=== PATIENT | female | born 1995 | race Asian ===

== ENCOUNTER 2019-04-22 19:22 | Emergency (ER) | payer OTHER, SELFPAY ==
[2019-04-22] VITALS (9 sets, daily range): BP systolic 106–126; BP diastolic 51–78; PULSE 88–149; RESP 16–22; TEMP 37.5–39.4; O2SAT 97–100
[2019-04-22] MEDS: SODIUM CHLORIDE 0.9% 1,000 ML 1000 ML IV (20:00)
--- NOTE | 2019-04-22 20:07 | ED.FEVER ---
HPI - Fever General Chief Complaint: Fever Stated Complaint: COUGH,THREW UP FEVER Time Seen by Provider: 04/22/19 20:06 Source: patient and other (boyfriend) Mode of arrival: Ambulatory Limitations: no limitations History of Present Illness HPI Narrative: This is a 23-year-old female comes to the emergency department with complaint of fever, chills, body aches. Patient states that she will started yesterday. She has had a headache but does not describe it as severe no photophobia. She states this morning she took some ibuprofen she had a temperature of 104? F at she denies any nasal congestion she has had a with been sort of mucousy. She has felt congested in her chest she denies any sore throat. Um she states she vomited twice but describes both episodes as what sound like post-tussive emesis. She denies any abdominal pain. She describes muscle aches from head to toe. She denies any urinary frequency dysuria urgency. States she is on her menses. She denies any rash or skin changes. 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 She denies any past medical issues, denies any surgeries. She states she is allergic to penicillin and develops hives. Denies tobacco, occasional alcohol, no illicit. 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 Related Data Previous Rx's Medication Instructions Recorded azithromycin 250 mg PO DAILY 4 Days #4 tab 04/22/19 Allergies Allergy/AdvReac Type Severity Reaction Status Date / Time Penicillins Allergy Verified 04/22/19 21:26 Review of Systems Review of Systems ROS Unobtainable: All systems reviewed & are unremarkable except as noted in HPI and below Constitutional Constitutional: Reports body ache(s), Reports chills, Denies excessive sweating, Denies fatigue, Reports fever(s), Reports headache(s), Denies lethargy and Denies weakness Eyes Eyes: Denies change in vision and Denies photophobia ENT Ears, Nose, Mouth, and Throat: Reports as per HPI, Denies vertigo, Denies dizziness, Reports headache(s), Denies nasal congestion, Denies post nasal drip, Denies sinus pressure and Denies sore throat Cardiovascular Cardiovascular: Denies chest pain, Denies edema, Denies irregular heart rhythm, Denies lightheadedness, Denies palpitations, Denies dyspnea, Denies dyspnea on exertion and Denies orthopnea Respiratory Respiratory: Denies change in phlegm color, Reports chest congestion, Reports cough, Denies hemoptysis, Reports excessive phlegm production, Denies pain on inspiration, Denies pain with cough, Denies dyspnea, Denies dyspnea on exertion and Denies wheezing Gastrointestinal Gastrointestinal: Denies abdominal pain, Denies melena, Denies hematochezia, Denies change in bowel habits, Denies diarrhea, Denies nausea and Denies vomiting Genitourinary Genitourinary: Denies abnormal menses (on normal menses.), Denies abnormal vaginal bleeding, Denies hematuria, Denies dysuria, Denies pelvic pain, Denies flank pain, Denies urinary incontinence, Denies urinary urgency and Denies vaginal discharge Musculoskeletal Musculoskeletal: Reports as per HPI, Denies back pain and Reports myalgias Integumentary/Breasts Skin/Breast: Denies erythema, Denies rash and Denies unusual bruising Neurologic Neurologic: Denies vertigo, Denies dizziness, Reports headache(s) and Denies weakness Endocrine Endocrine: Denies excessive sweating, Denies fatigue and Denies palpitations Allergic/Immunologic Allergic/Immunologic: Denies wheezing Patient History Social History Smoking Status: Never smoker alcohol intake frequency: a few times a month Substance Use Type: does not use Exam Narrative Exam Narrative: GEN: well nourished, well appearing female, alert and oriented x 3, patient appears to be in mild distress. Patient is warm to the touch. HEENT: Atraumatic, pupils are equal round reactive to light, extraocular movements are intact, no photophobia, nares are clear, TMs are clear with no fluid, there is no conjunctival pallor. Throat is clear without any exudates, erythema, tonsillar enlargement or uvular deviation, negative Kernig's and Brudzinski's. No meningeal signs. HEART: Regular rate and rhythm without murmur, clicks, rubs. Pulses are equal in upper and lower extremities LUNGS:Lungs clear to auscultation, no wheezes, rales, crackles, chest moves symmetrically, no tachypnea or accessory muscle use. ABD:bowel sounds normal, soft, mild generalized abdominal tenderness greatest in RLQ, no guarding, rebound, rigidity, no masses noted, no hepatosplenomegaly :No CVA tenderness MSCL: Non-tender, no muscle atrophy, muscles strength 5/5 upper and lower extremities, full range of motion, normal gait NEURO:CN 2-12 intact, sensation normal SKIN: No rash, no petechiae, no erythema. Initial Vital Signs Initial Vital Signs: Vital Signs Temperature 102.8 F H 04/22/19 19:26 Pulse Rate 149 H 04/22/19 19:26 Respiratory Rate 22 04/22/19 19:26 Blood Pressure 126/64 04/22/19 19:26 Pulse Oximetry 100 04/22/19 19:26 Course Orders Ordered: ED Orders 04/22/19 19:05 Lactate (Lactic Acid) Stat Procalcitonin Stat 04/22/19 19:38 EKG-12 Lead Stat 04/22/19 19:50 Complete Blood Count AUTO DIFF Stat Comprehensive Metabolic Panel Stat 04/22/19 20:02 Influenza A and B by PCR Rapid Stat 04/22/19 20:17 XR chest 1V Stat 04/22/19 20:35 Blood Culture Stat Discontinued Medications Acetaminophen (Tylenol) 975 mg PO NOW ONE Stop: 04/22/19 21:33 Last Admin: 04/22/19 21:57 Dose: 975 mg Documented by: KYLERFARL Azithromycin (Zithromax) 500 mg PO NOW ONE Stop: 04/22/19 21:05 Last Admin: 04/22/19 21:23 Dose: 500 mg Documented by: AMY Sodium Chloride (Normal Saline 0.9%) 1,000 mls @ 1,000 mls/hr IV BOLUS ONE Stop: 04/22/19 20:37 Last Infusion: 04/22/19 21:16 Dose: 0 mls/hr Documented by: Admin: 04/22/19 20:00 Dose: 1,000 mls/hr Documented by: MMCFARL Sodium Chloride (Normal Saline 0.9%) 1,605.72 mls @ 535.24 mls/hr 30 ml/kg infuse over 3 hr (1605.72 ml) IV NOW ONE Stop: 04/22/19 23:19 Last Infusion: 04/22/19 23:59 Dose: 0 mls/hr Documented by: Admin: 04/22/19 21:23 Dose: 535.24 mls/hr Documented by: AMY Ceftriaxone Sodium/Dextrose (Rocephin) 1 gm in 50 mls @ 100 mls/hr IV NOW ONE Stop: 04/22/19 21:32 Last Infusion: 04/22/19 22:19 Dose: 0 mls/hr Documented by: Admin: 04/22/19 21:23 Dose: 100 mls/hr Documented by: AMY Ketorolac Tromethamine (Toradol) 30 mg IV NOW ONE Stop: 04/22/19 20:21 Last Admin: 04/22/19 20:28 Dose: 30 mg Documented by: SILVIA Vital Signs Vital signs: Vital Signs - 8 hr 04/22/19 19:26 04/22/19 20:16 04/22/19 20:28 Temperature 102.8 F H 102.8 F H Pulse Rate 149 H 128 H Respiratory Rate 22 18 Blood Pressure 126/64 Blood Pressure [Left Arm] 109/51 L Pulse Oximetry 100 99 04/22/19 21:00 04/22/19 21:30 04/22/19 21:57 Temperature 102.9 F H 102.8 F H Pulse Rate 121 H 117 H Respiratory Rate 21 18 Blood Pressure Blood Pressure [Left Arm] 125/55 L 117/78 Pulse Oximetry 100 97 04/22/19 22:24 04/22/19 23:07 04/22/19 23:59 Temperature 99.5 F Pulse Rate 88 97 H Respiratory Rate 20 16 Blood Pressure 106/61 Blood Pressure [Left Arm] 106/61 Pulse Oximetry 97 99 MDM - Fever Lab Data Attestation: I reviewed the patient's lab results. Result diagrams: 04/22/19 19:50 04/22/19 19:50 Labs: Lab Results 04/22/19 04/22/19 04/22/19 Range/Units 19:05 19:05 19:50 WBC 16.1 H (4.5-11.0) X10^3/uL RBC 5.43 H (4.0-5.2) X10^6/uL Hgb 14.2 (12.0-16.0) g/dL Hct 42.2 (36-46) % MCV 77.7 L (80-100) fL MCH 26.2 (26-34) PG MCHC 33.7 (30-36) % RDW 12.9 (11.6-14.8) % Plt Count 256 (150-400) X10^3/uL Neut % (Auto) 87.3 H (50-75) % Lymph % (Auto) 7.3 L (25-40) % [place] % (Auto) 5.1 (3-14) % Eos % (Auto) 0.0 L (2-4) % Baso % (Auto) 0.3 (0-2) % Neut # (Auto) 38012 H (1311-6087) /uL Lymph # (Auto) 1200 (7109-9959) /uL [place] # (Auto) 800 (0-900) /uL Eos # (Auto) 0 (0-450) /uL Baso # (Auto) 0 (0-100) /uL Sodium (137-145) mmol/L Potassium (3.4-5.1) mmol/L Chloride (98-107) mmol/L Carbon Dioxide (22-32) mmol/L BUN (7-17) mg/dL Creatinine (0.52-1.04) mg/dL Estimated GFR (>60) mL/min BUN/Creatinine Ratio (6-22) Glucose (70-100) mg/dL Lactate 1.3 (0.7-2.1) mmol/L Calcium (8.4-10.2) mg/dL Total Bilirubin (0.2-1.3) mg/dL AST (14-36) IU/L ALT (<35) IU/L Alkaline Phosphatase (38-126) U/L Total Protein (6.3-8.2) g/dL Albumin (3.5-5.0) g/dL Globulin (1.7-4.1) g/dL Albumin/Globulin Ratio (1.0-2.8) Procalcitonin 0.29 (<0.5) ng/mL Influenza A & B (PCR) (Negative) 04/22/19 04/22/19 Range/Units 19:50 20:02 WBC (4.5-11.0) X10^3/uL RBC (4.0-5.2) X10^6/uL Hgb (12.0-16.0) g/dL Hct (36-46) % MCV (80-100) fL MCH (26-34) PG MCHC (30-36) % RDW (11.6-14.8) % Plt Count (150-400) X10^3/uL Neut % (Auto) (50-75) % Lymph % (Auto) (25-40) % [place] % (Auto) (3-14) % Eos % (Auto) (2-4) % Baso % (Auto) (0-2) % Neut # (Auto) (6806-8242) /uL Lymph # (Auto) (9562-3232) /uL [place] # (Auto) (0-900) /uL Eos # (Auto) (0-450) /uL Baso # (Auto) (0-100) /uL Sodium 136 L (137-145) mmol/L Potassium 3.6 (3.4-5.1) mmol/L Chloride 99 (98-107) mmol/L Carbon Dioxide 23 (22-32) mmol/L BUN 25 H (7-17) mg/dL Creatinine 1.10 H (0.52-1.04) mg/dL Estimated GFR > 60.0 (>60) mL/min BUN/Creatinine Ratio 22.7 H (6-22) Glucose 124 H (70-100) mg/dL Lactate (0.7-2.1) mmol/L Calcium 9.8 (8.4-10.2) mg/dL Total Bilirubin 0.6 (0.2-1.3) mg/dL AST 26 (14-36) IU/L ALT 19 (<35) IU/L Alkaline Phosphatase 78 (38-126) U/L Total Protein 8.8 H (6.3-8.2) g/dL Albumin 5.0 (3.5-5.0) g/dL Globulin 3.8 (1.7-4.1) g/dL Albumin/Globulin Ratio 1.3 (1.0-2.8) Procalcitonin (<0.5) ng/mL Influenza A & B (PCR) Negative (Negative) Point of Care Testing Test Results Negative Rapid Strep A Negative Urine Dip Bedside Urine Glucose Negative Bedside Urine Bilirubin - Negative Bedside Urine Ketone - Negative Urine Specific [place] 1.015 Bedside Urine Occult Blood + Bedside Urine pH 6.0 Bedside Urine Protein - Negative Bedside Urine Urobilinogen - Negative Bedside Urine Nitrite - Negative Bedside Urine Leukocytes - Negative Esterase Imaging Data Chest x-ray: Radiologist's impression: [address] [address] XRay Report Signed Patient: Letty Andrade GMR#: [id number] : 1995Acct:[id number] Age/Sex: 23 / FDate of Service: 04/22/19 Loc: ED Accession Number: [id number] Procedure: XR chest 1V Ordering Provider: Laney Sampson D.O. PROCEDURE: XR CHEST 1V INDICATIONS: fever, cough, chest congestion TECHNIQUE: One view of the chest was acquired. COMPARISON: None. FINDINGS: Surgical changes and devices: None. Lungs and pleura: Increased bronchovascular markings in bilateral hilar region are seen. Subtle opacity in right infrahilar region is noted, concerning for developing infiltrate. Left lung is clear. No pleural effusions or pneumothorax. Mediastinum: Mediastinal contours appear normal. Heart size is normal. Bones and chest wall: No suspicious bony lesions. Overlying soft tissues appear unremarkable. IMPRESSION: Finding is concerning for developing right lower lobe infiltrate. Dictated by: Lj Mccullough M.D. on 04/22/2019 at 20:54 Approved by: Lj Mccullough M.D. on 04/22/2019 at 20:55 ECG Data Attestation: I personally reviewed and interpreted this ECG as follows: Prior ECG tracings: not available for review Interpretation: Sinus tachycardia rate of 128, P are 136 QRS of 98 QTC of 410. No ST elevation or depression noted. [facility] Narrative Medical decision making narrative: In with complaint of fevers, myalgias, cough for the last 24 hours. Patient states she has a headache but describes as fairly mild. Patient's imaging shows possible early infiltrate in the right lower lobe, labs are consistent with infection with a white count of 16, leftward shift, patient's sodium is 136, BUN 25 with a creatinine of 1.1. Patient's glucose 124 otherwise LFTs and electrolytes are normal. Patient's lactate is 1.3 with a procalcitonin of 0.29 which is consistent with a possible bacterial infection for lower respiratory tract with procalcitonin, blood cultures were obtained, urinalysis did not show any signs of infection influenza was negative. Patient did not have any meningeal signs or photophobia my suspicion for meningitis is low. Patient received 2 L of fluid and her tachycardia improved significantly, she also received Toradol and Tylenol which ultimately improved her temperature as well. Patient was feeling much better she received a dose of IV Rocephin as well as azithromycin 500 mg as started on azithromycin p.o. strict return precautions were given. Discharge Plan Departure Patient Disposition: Home Clinical Impression: Pneumonia Discharge Date/Time: 04/22/19 23:07 Instructions: DI for Pneumonia -- Adult Activity Restrictions/Additional Instructions: Follow-up with primary care in the next 2-3 days for recheck. Call for an appointment. Take antibiotics until they are completely gone. Continue with ibuprofen up to 800 mg every 8 hours as needed for fevers and/or myalgias, you may also take Tylenol up to a 1000 mg every 8 hours as needed for fevers and/or myalgias Make sure you are drinking plenty of fluids. Return to the emergency department for re-evaluation if her fevers do not respond ibuprofen and Tylenol, if you are having new shortness of breath, passing out, persistent vomiting, new abdominal pain, chest pain, coughing up blood, black or bloody stools sudden severe headaches or other new or concerning symptoms. Prescriptions: New azithromycin 250 mg tablet 250 mg PO DAILY 4 Days Qty: 4 RF: 0
[2019-04-22 20:10] LABS: Add Manual Diff / Slide Review NO; Basophils Absolute Auto 0 /uL (0-100); Basophils Percent Auto 0.3 % (0-2); Eosinophils Absolute Auto 0 /uL (0-450); Hematocrit 42.2 % (36-46); Hemoglobin 14.2 g/dL (12.0-16.0); Lymphocytes Absolute Auto 1200 /uL (1100-4500); Lymphocytes Percent Auto 7.3 % (25-40); Mean Corpuscular HGB Conc 33.7 % (30-36); Mean Corpuscular Hemoglobin 26.2 PG (26-34); Mean Corpuscular Volume 77.7 fL (80-100); Monocytes Absolute Auto 800 /uL (0-900); Monocytes Percent Auto 5.1 % (3-14); Neutrophils Absolute Auto 14000 /uL (1500-7000); Neutrophils Percent Auto 87.3 % (50-75); Platelet Count 256 X10^3/uL (150-400); Red Blood Cell Count 5.43 X10^6/uL (4.0-5.2); Red Cell Distribution Width 12.9 % (11.6-14.8); White Blood Cell Count 16.1 X10^3/uL (4.5-11.0)
--- NOTE | 2019-04-22 20:17 | DI.RAD.S_ITS ---
PROCEDURE: XR CHEST 1V INDICATIONS: fever, cough, chest congestion TECHNIQUE: One view of the chest was acquired. COMPARISON: None. FINDINGS: Surgical changes and devices: None. Lungs and pleura: Increased bronchovascular markings in bilateral hilar region are seen. Subtle opacity in right infrahilar region is noted, concerning for developing infiltrate. Left lung is clear. No pleural effusions or pneumothorax. Mediastinum: Mediastinal contours appear normal. Heart size is normal. Bones and chest wall: No suspicious bony lesions. Overlying soft tissues appear unremarkable. IMPRESSION: Finding is concerning for developing right lower lobe infiltrate. Dictated by: Lj Mccullough M.D. on 04/22/2019 at 20:54 Approved by: Lj Mccullough M.D. on 04/22/2019 at 20:55
[2019-04-22 20:23] LABS: Influenza A and B by PCR Rapid Negative (Negative)
[2019-04-22 20:28] LABS: Alanine Aminotransferase 19 IU/L (<35); Albumin Globulin Ratio 1.3 (1.0-2.8); Alkaline Phosphatase 78 U/L (38-126); Aspartate Aminotransferase 26 IU/L (14-36); BUN Creatinine Ratio 22.7 (6-22); Bilirubin Total 0.6 mg/dL (0.2-1.3); Blood Urea Nitrogen 25 mg/dL (7-17); Calcium 9.8 mg/dL (8.4-10.2); Carbon Dioxide 23 mmol/L (22-32); Chloride 99 mmol/L (98-107); Estimated Glomerular Filt Rate > 60.0 mL/min (>60); Globulin 3.8 g/dL (1.7-4.1); Glucose 124 mg/dL (70-100); HEMOLYSIS < 15 (0-50); Potassium 3.6 mmol/L (3.4-5.1); Sodium 136 mmol/L (137-145); Total Protein 8.8 g/dL (6.3-8.2)
[2019-04-22] MEDS: KETOROLAC 60 MG/2 ML VIAL 30 MG IV (20:28)
[2019-04-22 20:46] LABS: Lactate (Lactic Acid) 1.3 mmol/L (0.7-2.1)
[2019-04-22 21:04] LABS: Procalcitonin 0.29 ng/mL (<0.5)
[2019-04-22] MEDS: AZITHROMYCIN 250 MG TABLET 500 MG PO (21:23)
[2019-04-22] MEDS: CEFTRIAXONE 1 GM/50 ML FROZ.PIGGY IV (21:23)
[2019-04-22] MEDS: SODIUM CHLORIDE 0.9% 535.24 ML IV (21:23)
[2019-04-22] MEDS: ACETAMINOPHEN 325 MG TABLET 975 MG PO (21:57)
== END 2019-04-22 23:07 | disposition home or self-care (01) ==
PROVIDERS: Emergency Provider Emergency Medicine
DX: J18.9 Pneumonia, unspecified organism (principal); R00.0 Tachycardia, unspecified
CPT/HCPCS: 36415; 71045; 80053; 81003; 81025; 83605; 84145; 85025; 87040; 87502; 87880; 93005; 96361; 96365; 96375; 99285; J1885

== ENCOUNTER 2021-09-20 10:34 | Day surgery (SDC) | payer OTHER, SELFPAY ==
[2021-09-20] VITALS (11 sets, daily range): BP systolic 116–134; BP diastolic 70–87; PULSE 67–97; RESP 12–22; TEMP 36.1–37.3; O2SAT 96–100; BMI 22.3
--- NOTE | 2021-09-20 | PATH_ITS ---
[facility] Accession Number: [id number] . 01 Material submitted: . PART A: product of conception - PRODUCTS OF CONCEPTION PART B: cervix - CERVICAL BIOPSY . 01 Diagnosis: A. Specimen Designated Products of Conception: Few small superficial fragments of proliferative-type endometrium. Strips of benign endocervical tissue. No chorionic villi or other products of conception identified. . B. Cervix, Biopsy: Tangentially oriented detached fragments of ectocervical epithelium with dysplasia, consistent with high-grade squamous intraepithelial lesion (JONAS-2/moderate dysplasia) and with HPV cytopathic changes. No malignancy. MRV 09/24/2021 1306 Local . 01 Electronically signed: . Neli Mishra MD, Pathologist NPI- [id number] . 01 Gross description: . A. The specimen is received in formalin, labeled products of conception, and consists of an aggregate of way to hemorrhagic tissue fragments measuring 2.5 x 0.7 x 0.3 cm in aggregate. The specimen is filtered and entirely submitted in one cassette. B. The specimen is received in formalin, labeled cervical biopsy, and consists of an aggregate of way tissue fragments measuring 0.3 x 0.3 x 0.1 cm in aggregate. The specimen is filtered and entirely submitted in one cassette. ([id number]) /[facility] 09/21/2021 1840 Local . 01 Microscopic: . A p16 immunostains shows areas of strong and diffuse positivity with an increased proliferation index on Ki-67. The overall findings support the presence of high-grade squamous intraepithelial lesion. Controls stain appropriately. . * This test was developed and its performance characteristics determined by [employer]. It has not been cleared or approved by the U.S. Food and Drug Administration. The FDA has determined that such clearance or approval is not necessary. This test is used for clinical purposes. It should not be regarded as investigational or for research. . 01 Pathologist provided ICD-10: N87.1, O03.4 . 01 CPT . 038325, 737318, L56943, [id number] Specimen Comment: A courtesy copy of this report has been sent to [phone] Performed at: 01 [facility] [address] [place] [address], [place], [place] [id number] MD Alexis Choudhury MD Phone: [phone]
--- NOTE | 2021-09-20 11:10 | ED_ITS ---
HPI - Female Genitourinary General Chief complaint: Vaginal Bleeding Stated complaint: States infection post - sent by base Dr Time Seen by Provider: 09/20/21 10:55 Source: patient Mode of arrival: Ambulatory History of Present Illness HPI Narrative: 25-year-old female nonsmoker is a sent by the [employer]. She had an elective by Cytotec on September 09 at 8 weeks. She presented to her primary care today to discuss whether not she could get on control and had mentioned some pelvic cramping and minimal spotting, as a result she had a bedside ultrasound with suspects retained products. The patient denies any dizziness, weakness or lightheadedness. She has had no fever or chills. She has no chest pain or shortness of breath. She has been NPO to solids since last night and admits to a small volume of red bull this morning Related Data Home Medications Medication Instructions Recorded Confirmed ibuprofen 800 mg tablet 800 mg PO TID PRN 09/20/21 09/20/21 Allergies Allergy/AdvReac Type Severity Reaction Status Date / Time Penicillins Allergy Intermediate Hives Verified 09/20/21 16:29 Patient History alcohol intake frequency: a few times a month Substance Use Type: does not use Exam Initial Vital Signs Initial Vital Signs: Vital Signs Temperature 97.0 F L 09/20/21 10:42 Pulse Rate 67 09/20/21 10:42 Respiratory Rate 18 09/20/21 10:42 Blood Pressure 134/87 09/20/21 10:42 Pulse Oximetry 99 09/20/21 10:42 Course Orders Ordered: ED Orders 09/20/21 11:05 ABO RH Type Stat Basic Metabolic Panel Stat Complete Blood Count AUTO DIFF Stat HCG Quantitative /Beta subunit Stat 09/20/21 11:14 COVID19 -Nasal RAPID/Pre-Proc Stat 09/20/21 11:42 US pelvic complete Stat 09/20/21 12:12 Blood Culture Stat 09/20/21 12:15 Urinalysis and Microscopic Stat Lactated Ringer's (Lactated Ringers) 1,000 mls @ 100 mls/hr IV CONT SAUNDRA Last Admin: 09/20/21 16:25 Dose: 100 mls/hr Documented by: AGATHA Discontinued Medications Doxycycline Hyclate (Doxycycline Hyclate 100 Mg Tablet) 200 mg PO NOW ONE Stop: 09/20/21 15:42 Last Admin: 09/20/21 16:52 Dose: 200 mg Documented by: AGATHA Ondansetron HCl (Ondansetron 4 Mg/2 Ml Inj) 4 mg IV NOW ONE Stop: 09/20/21 17:38 Last Admin: 09/20/21 17:39 Dose: 4 mg Documented by: ZEKE Consultations Consultation #1: Dr. Vidal called early in the case, she will see patient at bedside, likely plan to go for D&C later this afternoon Vital Signs Vital signs: Vital Signs - 8 hr 09/20/21 16:31 Temperature 99.2 F Pulse Rate 83 Respiratory Rate 16 Blood Pressure 124/76 Pulse Oximetry 100 MDM - Female Genitourinary Lab Data Result diagrams: 09/20/21 11:05 09/20/21 11:05 Labs: Lab Results 09/20/21 09/20/21 09/20/21 Range/Units 11:05 11:05 11:05 WBC 10.1 (4.5-11.0) X10^3/uL RBC 5.06 (4.0-5.2) X10^6/uL Hgb 13.4 (12.0-16.0) g/dL Hct 40.5 (36-46) % MCV 80.0 (80-100) fL MCH 26.5 (26-34) PG MCHC 33.1 (30-36) % RDW 13.4 (11.6-14.8) % Plt Count 302 (150-400) X10^3/uL Neut % (Auto) 69.6 (50-75) % Lymph % (Auto) 24.7 L (25-40) % [place] % (Auto) 4.6 (3-14) % Eos % (Auto) 0.6 L (2-4) % Baso % (Auto) 0.5 (0-2) % Neut # (Auto) 7100 H (2401-7749) /uL Lymph # (Auto) 2500 (5368-7402) /uL [place] # (Auto) 500 (0-900) /uL Eos # (Auto) 100 (0-450) /uL Baso # (Auto) 100 (0-100) /uL Sodium 140 (137-145) mmol/L Potassium 4.0 (3.4-5.1) mmol/L Chloride 105 (98-107) mmol/L Carbon Dioxide 27 (22-32) mmol/L BUN 15 (7-17) mg/dL Creatinine 0.79 (0.52-1.04) mg/dL Estimated GFR > 60 (>60) mL/min BUN/Creatinine Ratio 19.0 (6-22) Glucose 109 H (70-100) mg/dL Calcium 9.6 (8.4-10.2) mg/dL HCG, Quant 164.8 mIU/mL Urine Color Urine Appearance Urine pH (4.5-8.0) Ur Specific [place] (1.000-1.035) Urine Protein (Negative) Urine Glucose (UA) (Negative) g/dL Urine Ketones (NEGATIVE) Urine Occult Blood (Negative) Urine Nitrate (Negative) Urine Bilirubin (NEGATIVE) Urine Urobilinogen (0.2) E.U./dL Ur Leukocyte Esterase (NEGATIVE) Urine RBC (0-5/HPF) Urine WBC (0-5/HPF) Ur Squamous Epith Cells (0-5/HPF) Urine Bacteria (None) Ur Culture Indicated? SARS-CoV-2 (PCR) (Negative) Blood Type A Negative 09/20/21 09/20/21 Range/Units 11:14 12:15 WBC (4.5-11.0) X10^3/uL RBC (4.0-5.2) X10^6/uL Hgb (12.0-16.0) g/dL Hct (36-46) % MCV (80-100) fL MCH (26-34) PG MCHC (30-36) % RDW (11.6-14.8) % Plt Count (150-400) X10^3/uL Neut % (Auto) (50-75) % Lymph % (Auto) (25-40) % [place] % (Auto) (3-14) % Eos % (Auto) (2-4) % Baso % (Auto) (0-2) % Neut # (Auto) (7488-0622) /uL Lymph # (Auto) (0745-7423) /uL [place] # (Auto) (0-900) /uL Eos # (Auto) (0-450) /uL Baso # (Auto) (0-100) /uL Sodium (137-145) mmol/L Potassium (3.4-5.1) mmol/L Chloride (98-107) mmol/L Carbon Dioxide (22-32) mmol/L BUN (7-17) mg/dL Creatinine (0.52-1.04) mg/dL Estimated GFR (>60) mL/min BUN/Creatinine Ratio (6-22) Glucose (70-100) mg/dL Calcium (8.4-10.2) mg/dL HCG, Quant mIU/mL Urine Color Yellow Urine Appearance Sl cloudy Urine pH 5.5 (4.5-8.0) Ur Specific [place] 1.025 (1.000-1.035) Urine Protein Negative (Negative) Urine Glucose (UA) Negative (Negative) g/dL Urine Ketones Negative (NEGATIVE) Urine Occult Blood Negative (Negative) Urine Nitrate Negative (Negative) Urine Bilirubin Negative (NEGATIVE) Urine Urobilinogen 0.2 (0.2) E.U./dL Ur Leukocyte Esterase Trace H (NEGATIVE) Urine RBC None seen (0-5/HPF) Urine WBC 1-5/hpf (0-5/HPF) Ur Squamous Epith Cells 5-10 /hpf H (0-5/HPF) Urine Bacteria None seen (None) Ur Culture Indicated? Cult not indicated SARS-CoV-2 (PCR) Negative (Negative) Blood Type Imaging Data US - NEWS EDITOR: Radiologist's Impression: [place] [address] Ultrasound Report Signed Patient: Letty Andrade MR#: [id number] : 1995 Acct:[id number] Age/Sex: 25 / F Date of Service: 09/20/21 Loc: ED Accession Number: [id number] ?? Procedure: US pelvic complete Ordering Provider: Albert Chau D.O. PROCEDURE:? US PELVIC COMPLETE ? INDICATIONS:? POSSIBLE RPOC POST MEDICAL ? TECHNIQUE:? Real-time scanning was performed of the pelvic organs, with image documentation.? Additional endovaginal scanning was necessary due to incomplete visualization of the adnexal and endometrial structures by transabdominal scanning.? ? COMPARISON:? None. ? FINDINGS:? ?? Uterus:? Uterus is anteverted and normal in size at 7.6 x 3.7 x 6 cm. The myometrium is homogeneous. ? ? Along the endometrial stripe, there is a focus of hypervascular material at the fundus measuring 2 x 0.9 x 2.3 cm.? Elsewhere, the endometrial stripe measures up to 9 mm.? Nonvascular low echogenicity material is also seen along the endometrial stripe, which is attributed to blood products. ? Ovaries:? The right ovary measures 2.9 x 1.9 x 2.4 cm and demonstrates a complex cyst that measures up to 1.7 cm cm. The left ovary measures 2.3 x 1 x 1.5 cm. The ovaries otherwise have a normal sonographic appearance.? No adnexal masses are seen. ? Other:? No pathologic free abdominal or pelvic fluid. ? ? IMPRESSION:? 2.3 cm focus of hypervascular soft tissue material seen at the uterine fundus, which is highly suspicious for retained products of conception, given the clinical history. ? Complex cyst seen involving the right ovary, which is likely to corpus luteum. ? We strive to produce accurate, complete, and clear reports of imaging services. To assist us in improving patient care, this report was composed using standard report templates and voice recognition software. Therefore, it may contain abnormal punctuation, insertions and/or omissions. Occasional wrong-word or sound-alike substitutions may occur. Though we review the report and make efforts to correct it, we do recommend that the report be read carefully in proper context to recognize any text inaccuracies. ? ? Dictated by: Celso Adams M.D. on 09/20/2021 at 11:18 ? ? Approved by: Celso Adams M.D. on 09/20/2021 at 11:20 ? Discharge Plan Departure Patient Disposition: Admitted to Surgery Clinical Impression: Retained products of conception following
[2021-09-20 11:15] LABS: Add Manual Diff / Slide Review NO; Basophils Absolute Auto 100 /uL (0-100); Basophils Percent Auto 0.5 % (0-2); Eosinophils Absolute Auto 100 /uL (0-450); Eosinophils Percent Auto 0.6 % (2-4); Hematocrit 40.5 % (36-46); Hemoglobin 13.4 g/dL (12.0-16.0); Lymphocytes Absolute Auto 2500 /uL (1100-4500); Lymphocytes Percent Auto 24.7 % (25-40); Mean Corpuscular HGB Conc 33.1 % (30-36); Mean Corpuscular Hemoglobin 26.5 PG (26-34); Monocytes Absolute Auto 500 /uL (0-900); Monocytes Percent Auto 4.6 % (3-14); Neutrophils Absolute Auto 7100 /uL (1500-7000); Neutrophils Percent Auto 69.6 % (50-75); Platelet Count 302 X10^3/uL (150-400); Red Blood Cell Count 5.06 X10^6/uL (4.0-5.2); Red Cell Distribution Width 13.4 % (11.6-14.8); White Blood Cell Count 10.1 X10^3/uL (4.5-11.0)
[2021-09-20 11:25] LABS: Blood Urea Nitrogen 15 mg/dL (7-17); Calcium 9.6 mg/dL (8.4-10.2); Carbon Dioxide 27 mmol/L (22-32); Chloride 105 mmol/L (98-107); Estimated Glomerular Filt Rate > 60 mL/min (>60); Glucose 109 mg/dL (70-100); HEMOLYSIS < 15 (0-50); Sodium 140 mmol/L (137-145)
[2021-09-20 11:31] LABS: COVID19 -Nasal RAPID Negative (Negative)
[2021-09-20 11:42] LABS: HCG Quantitative /Beta subunit 164.8 mIU/mL
--- NOTE | 2021-09-20 11:42 | DI.US.S_ITS ---
PROCEDURE: US PELVIC COMPLETE INDICATIONS: POSSIBLE RPOC POST MEDICAL TECHNIQUE: Real-time scanning was performed of the pelvic organs, with image documentation. Additional endovaginal scanning was necessary due to incomplete visualization of the adnexal and endometrial structures by transabdominal scanning. COMPARISON: None. FINDINGS: Uterus: Uterus is anteverted and normal in size at 7.6 x 3.7 x 6 cm. The myometrium is homogeneous. Along the endometrial stripe, there is a focus of hypervascular material at the fundus measuring 2 x 0.9 x 2.3 cm. Elsewhere, the endometrial stripe measures up to 9 mm. Nonvascular low echogenicity material is also seen along the endometrial stripe, which is attributed to blood products. Ovaries: The right ovary measures 2.9 x 1.9 x 2.4 cm and demonstrates a complex cyst that measures up to 1.7 cm cm. The left ovary measures 2.3 x 1 x 1.5 cm. The ovaries otherwise have a normal sonographic appearance. No adnexal masses are seen. Other: No pathologic free abdominal or pelvic fluid. IMPRESSION: 2.3 cm focus of hypervascular soft tissue material seen at the uterine fundus, which is highly suspicious for retained products of conception, given the clinical history. Complex cyst seen involving the right ovary, which is likely to corpus luteum. We strive to produce accurate, complete, and clear reports of imaging services. To assist us in improving patient care, this report was composed using standard report templates and voice recognition software. Therefore, it may contain abnormal punctuation, insertions and/or omissions. Occasional wrong-word or sound-alike substitutions may occur. Though we review the report and make efforts to correct it, we do recommend that the report be read carefully in proper context to recognize any text inaccuracies. Dictated by: Celso Adams M.D. on 09/20/2021 at 11:18 Approved by: Celso Adams M.D. on 09/20/2021 at 11:20
[2021-09-20 12:18] LABS: Appearance Urine UA SL CLOUDY; Bilirubin Urine UA NEGATIVE (NEGATIVE); Color Urine UA YELLOW; Glucose Urine UA NEGATIVE (Negative); Ketones Urine UA NEGATIVE (NEGATIVE); Leukocyte Esterase Urine UA TRACE (NEGATIVE); Nitrite Urine UA NEGATIVE (Negative); Occult Blood Urine UA NEGATIVE (Negative); Protein Urine UA NEGATIVE (Negative); Specific Gravity Urine UA 1.025 (1.000-1.035); Urobilinogen Urine UA 0.2 E.U./dL (0.2)
[2021-09-20 12:19] LABS: pH Urine UA 5.5 (4.5-8.0)
[2021-09-20 12:22] LABS: Bacteria Urine None Seen; Culture Indicated Urine Cult Not Indicated; RBC Urine None Seen (0-5/HPF); Squamous Epithelial Cell Urine 5-10 /HPF (0-5/HPF); WBC Urine 1-5/HPF (0-5/HPF)
--- NOTE | 2021-09-20 13:47 | P.CONS_ITS ---
History of Present Illness Consult details Chief complaint: States infection post - sent by base Dr Rooney Home Medications and Allergies Home Medications Medication Instructions Recorded Confirmed Type ibuprofen 800 mg tablet 800 mg PO TID PRN 09/20/21 09/20/21 History Allergies Allergy/AdvReac Type Severity Reaction Status Date / Time Penicillins Allergy Verified 09/20/21 10:47 Exam Vital Signs (past 8 hours): - 09/20/21 10:42 Temperature 97.0 F L Pulse Rate 67 Respiratory Rate 18 Blood Pressure 134/87 Pulse Oximetry 99 Oxygen Delivery Method Room Air Objective Labs Result Diagrams: 09/20/21 11:05 09/20/21 11:05 Labs: Laboratory Results - last 24 hr 09/20/21 09/20/21 09/20/21 11:05 11:05 11:14 WBC 10.1 RBC 5.06 Hgb 13.4 Hct 40.5 MCV 80.0 MCH 26.5 MCHC 33.1 RDW 13.4 Plt Count 302 Neut % (Auto) 69.6 Lymph % (Auto) 24.7 L [place] % (Auto) 4.6 Eos % (Auto) 0.6 L Baso % (Auto) 0.5 Neut # (Auto) 7100 H Lymph # (Auto) 2500 [place] # (Auto) 500 Eos # (Auto) 100 Baso # (Auto) 100 Sodium 140 Potassium 4.0 Chloride 105 Carbon Dioxide 27 BUN 15 Creatinine 0.79 Estimated GFR > 60 BUN/Creatinine Ratio 19.0 Glucose 109 H Calcium 9.6 HCG, Quant 164.8 Urine Color Urine Appearance Urine pH Ur Specific [place] Urine Protein Urine Glucose (UA) Urine Ketones Urine Occult Blood Urine Nitrate Urine Bilirubin Urine Urobilinogen Ur Leukocyte Esterase Urine RBC Urine WBC Ur Squamous Epith Cells Urine Bacteria Ur Culture Indicated? SARS-CoV-2 (PCR) Negative 09/20/21 12:15 WBC RBC Hgb Hct MCV MCH MCHC RDW Plt Count Neut % (Auto) Lymph % (Auto) [place] % (Auto) Eos % (Auto) Baso % (Auto) Neut # (Auto) Lymph # (Auto) [place] # (Auto) Eos # (Auto) Baso # (Auto) Sodium Potassium Chloride Carbon Dioxide BUN Creatinine Estimated GFR BUN/Creatinine Ratio Glucose Calcium HCG, Quant Urine Color Yellow Urine Appearance Sl cloudy Urine pH 5.5 Ur Specific [place] 1.025 Urine Protein Negative Urine Glucose (UA) Negative Urine Ketones Negative Urine Occult Blood Negative Urine Nitrate Negative Urine Bilirubin Negative Urine Urobilinogen 0.2 Ur Leukocyte Esterase Trace H Urine RBC None seen Urine WBC 1-5/hpf Ur Squamous Epith Cells 5-10 /hpf H Urine Bacteria None seen Ur Culture Indicated? Cult not indicated SARS-CoV-2 (PCR) FORMERLY [facility], 1928–1983 Tobacco & Substance Use Smoking Status: Never smoker Assessment & Plan Time Spent With Patient Critical Care time: I spent a total of [] minutes of critical care time on this patient's care today; this time is exclusive of procedural time.
--- NOTE | 2021-09-20 14:27 | P.HPOB_ITS ---
History of Present Illness History of Present Illness Reason for admission: incomplete Narrative: Letty Andrade is a 25 year old s/p medical termination of an 8 week on 09/09, presenting with retained products of conception. The patient reports taking 'the first medication' on 09/09 followed by buccal cytotec on 09/10, and had cramping and passage of several large clots. She has continued to have cramping though scant bleeding, and reports that at her follow up visit today she was found to have retained POCs and sent to the emergency room. She denies fevers, chills, change in bowel or bladder habits, or any additional symptoms. She denies any other significant medical, surgical, family, or social history. [facility] Social History Smoking Status: Never smoker Meds Home Medications and Allergies Home Medications Medication Instructions Recorded Confirmed Type ibuprofen 800 mg tablet 800 mg PO TID PRN 09/20/21 09/20/21 History Allergies Allergy/AdvReac Type Severity Reaction Status Date / Time Penicillins Allergy Verified 09/20/21 10:47 Review of Systems Constitutional Constitutional: Reports system reviewed and no additional complaints, except as documented Cardiovascular Cardiovascular: Reports system reviewed and no additional complaints, except as documented Respiratory Respiratory: Reports system reviewed and no additional complaints, except as documented Gastrointestinal Gastrointestinal: Reports as per HPI Genitourinary Genitourinary: Reports as per HPI Exam Vital Signs (past 8 hours): - 09/20/21 10:42 Temperature 97.0 F L Pulse Rate 67 Respiratory Rate 18 Blood Pressure 134/87 Pulse Oximetry 99 Oxygen Delivery Method Room Air Const General: cooperative, healthy appearing, comfortable and well groomed Resp Effort & Inspection: normal respiratory effort Auscultation: clear to auscultation bilaterally Cardio Rate: regular rate Rhythm: regular rhythm GI Palpation: soft and tender (suprapubic) Other: exam deferred due to described light bleeding and room availability Objective Labs Result Diagrams: 09/20/21 11:05 09/20/21 11:05 Labs: Laboratory Results - last 24 hr 09/20/21 09/20/21 09/20/21 11:05 11:05 11:14 WBC 10.1 RBC 5.06 Hgb 13.4 Hct 40.5 MCV 80.0 MCH 26.5 MCHC 33.1 RDW 13.4 Plt Count 302 Neut % (Auto) 69.6 Lymph % (Auto) 24.7 L [place] % (Auto) 4.6 Eos % (Auto) 0.6 L Baso % (Auto) 0.5 Neut # (Auto) 7100 H Lymph # (Auto) 2500 [place] # (Auto) 500 Eos # (Auto) 100 Baso # (Auto) 100 Sodium 140 Potassium 4.0 Chloride 105 Carbon Dioxide 27 BUN 15 Creatinine 0.79 Estimated GFR > 60 BUN/Creatinine Ratio 19.0 Glucose 109 H Calcium 9.6 HCG, Quant 164.8 Urine Color Urine Appearance Urine pH Ur Specific [place] Urine Protein Urine Glucose (UA) Urine Ketones Urine Occult Blood Urine Nitrate Urine Bilirubin Urine Urobilinogen Ur Leukocyte Esterase Urine RBC Urine WBC Ur Squamous Epith Cells Urine Bacteria Ur Culture Indicated? SARS-CoV-2 (PCR) Negative 09/20/21 12:15 WBC RBC Hgb Hct MCV MCH MCHC RDW Plt Count Neut % (Auto) Lymph % (Auto) [place] % (Auto) Eos % (Auto) Baso % (Auto) Neut # (Auto) Lymph # (Auto) [place] # (Auto) Eos # (Auto) Baso # (Auto) Sodium Potassium Chloride Carbon Dioxide BUN Creatinine Estimated GFR BUN/Creatinine Ratio Glucose Calcium HCG, Quant Urine Color Yellow Urine Appearance Sl cloudy Urine pH 5.5 Ur Specific [place] 1.025 Urine Protein Negative Urine Glucose (UA) Negative Urine Ketones Negative Urine Occult Blood Negative Urine Nitrate Negative Urine Bilirubin Negative Urine Urobilinogen 0.2 Ur Leukocyte Esterase Trace H Urine RBC None seen Urine WBC 1-5/hpf Ur Squamous Epith Cells 5-10 /hpf H Urine Bacteria None seen Ur Culture Indicated? Cult not indicated SARS-CoV-2 (PCR) Assessment & Plan Assessment and plan (1) Retained products of conception following : Problem details: This patient presents with retained products of conception after medication . We discussed the risks and benefits of medical vs. surgical management, and the patient opted for suction dilation and curettage. We discussed the risk of uterine perforation, infection, hemorrhage, and intrauterine scarring, and the patient vocalized understanding. Informed consent was obtained and consents were signed. Status: Acute Time Spent With Patient Critical Care time: I spent a total of [] minutes of critical care time on this patient's care today; this time is exclusive of procedural time.
[2021-09-20] MEDS: LACTATED RINGERS 1,000 ML 100 ML IV (16:25)
[2021-09-20] MEDS: DOXYCYCLINE HYCLATE 100 MG TABLET 200 MG PO (16:52)
[2021-09-20] MEDS: ONDANSETRON 4 MG/2 ML INJ IV (17:39)
--- NOTE | 2021-09-20 19:16 | SUR.OPER ---
Lithotomy on padded OR bed, head on pillow, arms secured on padded arm boards at <90 degrees abduction. Legs secured in padded yellow fins stirrups.
--- NOTE | 2021-09-20 19:30 | PM.GYNOP.1 ---
Operative Date/Time/Diagnoses Date of procedure: 09/20/21 Time of procedure: 19:00 Pre-op diagnosis: Retained products of conception Post-op diagnosis: same Procedure & Clinicians Procedure: Procedures Operation Date: 09/20/21 16:30 Actual Procedure Side Surgeon p suction Dilation and Curettage, cervical biopsy Kim Vidal MD Indications: retained products of conception Surgeon: Kim Vidal Anesthesia Type: MAC +/- Operative Notes Findings: Normal vulva, vagina and cervix. 8 week sized, anteverted uterus. Small amount of retained products. Specimen(s): products of conception Estimated blood loss (mL): 25 Procedure in detail: After proper consents were obtained, the patient was taken to the operating room. IV sedation was induced, and she was placed in the dorsal lithotomy position and prepped and draped in the normal sterile fashion. The patient had voided just prior to transfer. A speculum was placed in the patient's vagina. A single tooth tenaculum was applied to the anterior lip of the cervix, and hegar dilators used to dilate the cervix to 7mm with gentle pressure. A suction curette was gently advanced to the fundus by feel and attached to suction, which was activated. When suction was within the normal range, the curette was gently rotated and a small amount of products of conception were removed. The suction tip was removed, and a gentle sharp curettage was performed. The suction tip was reinserted and attached to suction, and a scant amount of blood was removed with no further POCs. The suction tip was removed, and the tenaculum removed from the cervix. At this point, the cervix was noted to have a large, thick, white lesion on the surface. A superficial biopsy was collected with an Allis clamp, and hemostasis achieved with pressure and silver nitrate. The speculum was removed from the vagina. The patient tolerated the procedure well and was transferred to the PACU in stable condition. 200mg of pO doxycycline was administered prior to the case, and all counts were correct x2. IVF: 700ccs LR Complications: none Post-operative Condition: stable Disposition: PACU Plan for aftercare: Routine postop care
[2021-09-20] MEDS: OXYCODONE/ACETAMINOPHEN 5/325 TABLET 1 TAB PO ×2 (20:09→21:01)
--- NOTE | 2021-09-20 20:34 | SUR.PHASEII ---
Patient ready for discharge. Waiting for MD note. Dressed, steady on feet. No drainage from vagina.
--- NOTE | 2021-09-20 21:14 | SUR.PHASEII ---
Pt discharged to home with Romain Carias. Pt medicated with [address] Vidal (see order) for cramping pain up to 5-11/05. Pt will be unable to sweet pickle maker oxycodone tonight as pharmacy closed. Pt counciled on next doses of acetaminophen and ibuprofen.
== END 2021-09-20 21:05 | disposition home or self-care (01) ==
LOC: ED 14:37 → OR 16:31
PROVIDERS: Emergency Provider Emergency Medicine; Referring Provider Obstetrics & Gynecology; Visit Provider Obstetrics & Gynecology
PROC: (CPT 58120; principal; 2021-09-20 16:30)
DX: O07.4 Failed attempted termination of pregnancy without complication (principal); Z3A.08 8 weeks gestation of pregnancy; Z20.822 Contact with and (suspected) exposure to COVID-19; N87.1 Moderate cervical dysplasia
CPT/HCPCS: 59812; 36415; 76830; 76856; 80048; 81001; 84702; 85025; 86900; 86901; 87040; 87635; 96374; 99284; C9803; J1100; J1885; J2405; J2704; J3010

== ENCOUNTER 2021-11-17 20:33 | Emergency (ER) | payer OTHER, SELFPAY ==
[2021-11-17 20:39] VITALS: BP 125/78; PULSE 113; RESP 18; TEMP 38.3; O2SAT 100
[2021-11-17 22:50] VITALS: TEMP 39.4
[2021-11-17] MEDS: ACETAMINOPHEN 325 MG TABLET 650 MG PO (22:50)
--- NOTE | 2021-11-17 23:25 | ED.URI ---
HPI - URI/Sore Throat General Chief Complaint: Fever Stated Complaint: fever, body aches, ? covid Time Seen by Provider: 11/17/21 22:57 Source: patient Mode of arrival: Ambulatory History of Present Illness HPI Narrative: Patient here for cough cold congestion fever body aches and chills for the past 24 hours. No known sick contacts. Patient works on the [employer]. Patient is up-to-date with immunizations. Denies . No dyspnea. Tylenol given here. COVID test negative here. Awaiting results a respiratory panel. Has had sore throat as well Related Data Home Medications Medication Instructions Recorded Confirmed ibuprofen 800 mg tablet 800 mg PO TID PRN Pain (Scale 09/20/21 09/20/21 Score 7-10) Previous Rx's Medication Instructions Recorded oxycodone 5 mg tablet 5 mg PO Q6H PRN pain #7 tabs 09/20/21 azithromycin 250 mg tablet 250 mg PO DAILY 4 days #4 tabs 11/18/21 (Zithromax Z-Cl) Allergies Allergy/AdvReac Type Severity Reaction Status Date / Time Penicillins Allergy Intermediate Hives Verified 09/20/21 16:29 Review of Systems Review of Systems Narrative: GENERAL: Positive for chills, fatigue, malaise, fever, sweats. HEENT: Denies sinus pain, positive for ear pain, positive for sore throat RESPIRATORY: Denies dyspnea, positive for cough CARDIOVASCULAR: Denies chest pain, palpitations GASTROINTESTINAL: Denies nausea, vomiting, abdominal pain : Denies dysuria, frequency, hematuria MUSCULOSKELETAL: Positive for muscle or bony pain SKIN: Denies rash, skin lesions NEUROLOGIC: Denies weakness, numbness ROS Unobtainable: All systems reviewed & are unremarkable except as noted in HPI and below Patient History Social History household members: none Smoking Status: Never smoker Smoking Status: Never smoker alcohol intake frequency: a few times a month Substance Use Type: does not use Exam Narrative Exam Narrative: GENERAL: in no distress, not toxic not dyspneic HEAD: Normocephalic. EYES: Pupils equal round No scleral icterus. ENT: Mucous membranes moist. Mild erythema of the bilateral pharynx but no edema or exudates. Bilateral TMs are clear. NECK: Trachea midline. Mild bilateral submandibular tenderness CARDIOVASCULAR: Regular rate and rhythm without murmurs RESPIRATORY: Clear to auscultation. Breath sounds equal bilaterally. No wheezes, rales, or rhonchi. GASTROINTESTINAL: Abdomen soft, non-tender EXTREMITIES: No gross deformities. BACK: No flank tenderness. NEURO: AOx4. SKIN: Warm and dry PSYCH: Not anxious, is cooperative Initial Vital Signs Initial Vital Signs: Vital Signs Temperature 100.9 F H 11/17/21 20:39 Pulse Rate 113 H 11/17/21 20:39 Respiratory Rate 18 11/17/21 20:39 Blood Pressure 125/78 11/17/21 20:39 Pulse Oximetry 100 11/17/21 20:39 Oxygen Delivery Method 11/17/21 20:39 Course Course Course Narrative: No new issues during course of stay Orders Ordered: ED Orders 11/17/21 20:51 COVID19 -Nasal RAPID/Pre-Proc Stat 11/17/21 23:13 Respiratory Panel (Film Array) Stat 11/18/21 01:37 Urine Culture Stat Urine Microscopic Stat Discontinued Medications Acetaminophen (Acetaminophen 325 Mg Tablet) 650 mg PO NOW ONE Stop: 11/17/21 22:45 Last Admin: 11/17/21 22:50 Dose: 650 mg Documented By: KANDI Azithromycin (Azithromycin 250 Mg Tablet) 500 mg PO NOW ONE Stop: 11/18/21 01:52 Last Admin: 11/18/21 02:07 Dose: 500 mg Documented By: ZURDO Reevaluation(s) Reevaluation #1: Reviewed results with patient. Patient does complain of some sore throat. Has had a little cough. She does agree with Zithromax for clinical pharyngitis/strep throat. Vital Signs Vital signs: Vital Signs - 8 hr 11/17/21 22:50 11/18/21 00:00 11/18/21 02:44 Temperature 103 F H 100.3 F H Pulse Rate 113 H Respiratory Rate 22 Blood Pressure 112/77 Pulse Oximetry 98 Oxygen Delivery Method Room Air MDM - URI/Sore Throat Differential Diagnosis Differential diagnosis: Likely upper respiratory infection, otitis media, viral infection, bronchitis, influenza and pharyngitis Lab Data Labs: Lab Results 11/17/21 11/17/21 11/18/21 Range/Units 20:51 23:13 01:37 Urine RBC 0-1/hpf (0-5/HPF) Urine WBC None seen (0-5/HPF) Ur Squamous Epith Cells 0-1 /hpf (0-5/HPF) Urine Bacteria None seen (None) Urine Mucus 1+ H (Negative) Ur Culture Indicated? Culture not indicate Micro UA Comment * Chlamy pneumoniae PCR Not detected (Not Detect) Adenovirus (PCR) Not detected (Not Detect) B. pertussis DNA (PCR) Not detected (Not Detecte) B.parapertussis DNA PCR Not detected (Not Detecte) Coronavirus OC43 (PCR) Not detected (Not Detect) Coronavirus HKU1 (PCR) Not detected (Not Detect) Coronavirus 229E (PCR) Not detected (Not Detect) SARS-CoV-2 (PCR) Negative Not detected (Negative) Coronavirus NL63 (PCR) Not detected (Not Detect) Human Metapneumovir PCR Not detected (Not Detect) Influenza Type A (PCR) Not detected (Not Detect) Influenza Type B (PCR) Not detected (Not Detect) M. pneumoniae (PCR) Not detected (Not Detect) Parainfluenza 1 (PCR) Not detected (Not Detect) Parainfluenza 2 (PCR) Not detected (Not Detect) Parainfluenza 3 (PCR) Not detected (Not Detect) Parainfluenza 4 (PCR) Not detected (Not Detect) RSV (PCR) Not detected (Not Detect) Entero/Rhino (PCR) Not detected (Not Detect) Point of Care Testing Test Results Negative Rapid Strep A Negative Urine Dip Bedside Urine Glucose Negative Bedside Urine Bilirubin - Negative Bedside Urine Ketone + 15 Urine Specific [place] 1.025 Bedside Urine Occult Blood - Negative Bedside Urine pH 6.0 Bedside Urine Protein + 30 Bedside Urine Urobilinogen - Negative Bedside Urine Nitrite - Negative Bedside Urine Leukocytes - Negative Esterase MDM Narrative Medical decision making narrative: Appropriate for discharge home. Laboratory studies and exam are reassuring. Will treat clinically for pharyngitis. Patient states has had strep throat in the past and presented like this in the past. Strep screen has low sensitivity. Return precautions reviewed with patient. Work note provided. Discharge Plan Departure Patient Disposition: Home Clinical Impression: Pharyngitis Activity Restrictions/Additional Instructions: May continue [id number] ibuprofen or Tylenol for pain and fever. See family doctor in a week for recheck. Return if worse or for any questions or concerns. May return to work when fever free for 24 hours without use of fever medication. Prescription for antibiotics has been provided for you, Arnulfox. Continue this medication on Monday morning. First dose was given tonight/morning. Keep well hydrated. Prescriptions: New azithromycin [Zithromax Z-Cl] 250 mg tablet 250 mg PO DAILY 4 Days Qty: 4 0RF Rx Instructions: First dose given in the emergency department No Action ibuprofen 800 mg tablet 800 mg PO TID PRN (Reason: Pain (Scale Score 7-10)) Label Comments: TAKE 1 TABLET BY MOUTH EVERY 8 HOURS FOR 7 DAYS NEEDED FOR PAIN oxycodone 5 mg tablet 5 mg PO Q6H PRN (Reason: pain) Qty: 7 0RF Rx Instructions: Take as often as every 6 hours for pain. Referrals: Isabelle Young MD [Primary Care Provider] - Stand Alone Forms: Work Release Note Visit Report Forms: Patient Portal/API
[2021-11-18] VITALS: TEMP 37.9
[2021-11-18 00:33] LABS: Adenovirus Not Detected (Not Detect); Coronavirus 229E Not Detected (Not Detect); Coronavirus HKU1 Not Detected (Not Detect); Coronavirus NL 63 Not Detected (Not Detect); Coronavirus OC43 Not Detected (Not Detect); Human Metapneumovirus Not Detected (Not Detect); Human Rhinovirus/Enterovirus Not Detected (Not Detect); SARS- CoV-2 Not Detected (Not Detecte)
[2021-11-18 00:34] LABS: B. parapertussis Not Detected (Not Detecte); Bordetella pertussis Not Detected (Not Detecte); Chlamydophila pneumoniae Not Detected (Not Detect); Influenza A Not Detected (Not Detect); Influenza B Not Detected (Not Detect); Mycoplasma pneumoniae Not Detected (Not Detect); Parainfluenza Virus 1 Not Detected (Not Detect); Parainfluenza Virus 2 Not Detected (Not Detect); Parainfluenza Virus 3 Not Detected (Not Detect); Parainfluenza Virus 4 Not Detected (Not Detect); Respiratory Syncytial Virus Not Detected (Not Detect)
[2021-11-18] MEDS: AZITHROMYCIN 250 MG TABLET 500 MG PO (02:07)
[2021-11-18 02:43] LABS: Bacteria Urine None Seen; Mucus Urine 1+ (Negative); RBC Urine 0-1/HPF (0-5/HPF); Squamous Epithelial Cell Urine 0-1 /HPF (0-5/HPF); WBC Urine None Seen (0-5/HPF)
[2021-11-18 02:44] VITALS: BP 112/77; PULSE 113; RESP 22; O2SAT 98
[2021-12-01 18:30] LABS: COVID19 -Nasal RAPID POSITIVE (Negative)
== END 2021-11-18 02:45 | disposition home or self-care (01) ==
PROVIDERS: Emergency Provider Emergency Medicine; PCP Student in an Organized Health Care Education/Training Program
DX: J02.9 Acute pharyngitis, unspecified (principal); Z20.822 Contact with and (suspected) exposure to COVID-19
CPT/HCPCS: 81003; 81015; 81025; 87086; 87633; 87635; 87880; 99283; C9803

== ENCOUNTER → 2021-12-01 09:43 | Outpatient (CLI) | payer OTHER, SELFPAY ==
[2021-12-01 19:28] LABS: COVID19 -Nasal RAPID POSITIVE (Negative)
== END ==
PROVIDERS: PCP Student in an Organized Health Care Education/Training Program; Visit Provider Obstetrics & Gynecology
DX: U07.1 COVID-19 (principal)
CPT/HCPCS: 87635